=== PATIENT | male | born 1965 | race Two or more races ===

== ENCOUNTER 2017-12-12 12:28 | Outpatient (CLI) | payer OTHER | END 2017-12-12 12:33 | disposition home or self-care (01) | LOC: SONOGRAMA 12:28 | DX: M25.571 Pain in right ankle and joints of right foot (principal) ==

== ENCOUNTER → 2018-01-04 14:38 | Outpatient (CLI) | payer OTHER | END | disposition home or self-care (01) | LOC: LAB 14:38 | DX: J11.1 Influenza due to unidentified influenza virus with other respiratory manifestations (principal) ==

== ENCOUNTER 2018-03-15 14:06 | Outpatient (CLI) | payer OTHER | END 2018-03-15 14:08 | disposition home or self-care (01) | LOC: RAD 501 14:06 | DX: M25.531 Pain in right wrist (principal) ==

== ENCOUNTER 2018-05-11 12:25 | Outpatient (CLI) | payer OTHER | END 2018-05-11 17:00 | disposition home or self-care (01) | LOC: SONOGRAMA 12:25 | DX: M25.531 Pain in right wrist (principal) ==

== ENCOUNTER 2019-02-05 15:23 | Outpatient (CLI) | payer OTHER ==
[~2019-02-05] VITALS: Ht 172.7 cm; Wt 65.8 kg
== END 2019-02-05 15:40 | disposition home or self-care (01) ==
LOC: OFIC 805 15:23
DX: J38.3 Other diseases of vocal cords (principal); R22.1 Localized swelling, mass and lump, neck; M54.2 Cervicalgia; K08.89 Other specified disorders of teeth and supporting structures

== ENCOUNTER 2019-02-09 09:38 | Outpatient (CLI) | payer OTHER | END 2019-02-09 13:33 | disposition home or self-care (01) | LOC: TOM 09:38 | DX: R13.19 Other dysphagia (principal) | CPT/HCPCS: 70492; Q9965 ==

== ENCOUNTER 2019-02-14 11:10 | Outpatient (CLI) | payer OTHER | END 2019-02-14 11:30 | disposition home or self-care (01) | LOC: OFIC 805 11:10 | DX: K13.70 Unspecified lesions of oral mucosa (principal); K08.89 Other specified disorders of teeth and supporting structures; M54.2 Cervicalgia; J38.3 Other diseases of vocal cords ==

== ENCOUNTER → 2019-04-19 | Outpatient (CLI) | payer OTHER | END | disposition home or self-care (01) | LOC: RAD 14:57 | DX: M54.2 Cervicalgia (principal); M54.5 Low back pain ==

== ENCOUNTER 2019-08-17 14:52 | Outpatient (CLI) | payer OTHER | END 2019-08-17 15:55 | disposition home or self-care (01) | LOC: RAD 14:52 | DX: M54.5 Low back pain (principal) ==

== ENCOUNTER 2020-01-11 13:09 | Outpatient (CLI) | payer OTHER | END 2020-01-11 13:18 | disposition home or self-care (01) | LOC: SONOGRAMA 13:09 → MAMO-SONO 13:15 → SONOGRAMA 13:18 | DX: E04.2 Nontoxic multinodular goiter (principal); E55.9 Vitamin D deficiency, unspecified; E78.00 Pure hypercholesterolemia, unspecified; K51.419 Inflammatory polyps of colon with unspecified complications ==

== ENCOUNTER 2020-04-21 11:57 | Outpatient (CLI) | payer OTHER | END 2020-04-21 12:01 | disposition home or self-care (01) | LOC: RAD 11:57 | PROVIDERS: ATTEND Physical Medicine & Rehabilitation | DX: M54.2 Cervicalgia (principal) ==

== ENCOUNTER 2020-09-24 08:57 | Outpatient (CLI) | payer OTHER | END 2020-09-24 09:22 | disposition HB | LOC: RAD 08:57 | PROVIDERS: ATTEND Physical Medicine & Rehabilitation | DX: M65.812 Other synovitis and tenosynovitis, left shoulder (principal); M25.512 Pain in left shoulder ==

== ENCOUNTER 2021-02-06 12:35 | Outpatient (CLI) | payer OTHER | END 2021-02-06 12:46 | disposition home or self-care (01) | LOC: RAD 12:35 | PROVIDERS: ATTEND Physical Medicine & Rehabilitation | DX: M54.6 Pain in thoracic spine (principal); M54.5 Low back pain; S40.012A Contusion of left shoulder, initial encounter ==

== ENCOUNTER 2021-03-18 13:11 | Outpatient (CLI) | payer OTHER | END 2021-03-18 13:23 | disposition home or self-care (01) | LOC: SONOGRAMA 13:11 → MAMO-SONO 13:15 → SONOGRAMA 13:23 | PROVIDERS: ATTEND Physical Medicine & Rehabilitation | DX: S96.922A Laceration of unspecified muscle and tendon at ankle and foot level, left foot, initial encounter (principal) ==

== ENCOUNTER 2021-05-07 14:47 | Outpatient (CLI) | payer OTHER | END 2021-05-07 14:56 | disposition home or self-care (01) | LOC: MRI 14:47 | PROVIDERS: ATTEND Physical Medicine & Rehabilitation | DX: M25.572 Pain in left ankle and joints of left foot (principal); S96.912A Strain of unspecified muscle and tendon at ankle and foot level, left foot, initial encounter | CPT/HCPCS: 73721 ==

== ENCOUNTER 2021-07-15 09:29 | Outpatient (CLI) | payer OTHER | END 2021-07-15 09:34 | disposition home or self-care (01) | LOC: NUCLEAR 09:29 | PROVIDERS: ATTEND Physical Medicine & Rehabilitation | DX: I73.9 Peripheral vascular disease, unspecified (principal); I87.2 Venous insufficiency (chronic) (peripheral) ==

== ENCOUNTER 2021-07-16 11:15 | Outpatient (CLI) | payer OTHER | END 2021-07-16 12:00 | disposition home or self-care (01) | LOC: NUCLEAR 11:15 | PROVIDERS: ATTEND Physical Medicine & Rehabilitation | DX: I73.9 Peripheral vascular disease, unspecified (principal) ==

== ENCOUNTER 2022-03-10 12:11 | Outpatient (CLI) | payer OTHER | END 2022-03-10 12:13 | disposition home or self-care (01) | LOC: RAD 12:11 | PROVIDERS: ATTEND Physical Medicine & Rehabilitation | DX: M25.552 Pain in left hip (principal) ==

== ENCOUNTER 2022-03-16 15:06 | Outpatient (CLI) | payer OTHER | END 2022-03-16 15:07 | disposition home or self-care (01) | LOC: TOM 15:06 | PROVIDERS: ATTEND Internal Medicine | DX: G44.221 Chronic tension-type headache, intractable (principal) ==

== ENCOUNTER → 2022-03-16 | Outpatient (CLI) | payer OTHER | END | disposition home or self-care (01) | LOC: RAD 13:49 | PROVIDERS: ATTEND Internal Medicine | DX: M54.2 Cervicalgia (principal) ==

== ENCOUNTER 2022-04-09 14:28 | Outpatient (CLI) | payer OTHER | END 2022-04-09 14:32 | disposition home or self-care (01) | LOC: TOM 14:28 | PROVIDERS: ATTEND Physical Medicine & Rehabilitation | DX: M25.552 Pain in left hip (principal) ==

== ENCOUNTER 2023-05-09 14:38 | Outpatient (CLI) | payer OTHER | END 2023-05-09 14:43 | disposition home or self-care (01) | LOC: RAD 14:38 | PROVIDERS: ATTEND Physical Medicine & Rehabilitation | DX: M25.551 Pain in right hip (principal) ==

== ENCOUNTER 2024-02-02 13:52 | Outpatient (CLI) | payer OTHER | END 2024-02-02 13:57 | disposition home or self-care (01) | LOC: RAD 13:52 | PROVIDERS: ATTEND Specialist | DX: J45.20 Mild intermittent asthma, uncomplicated (principal) ==

== ENCOUNTER 2024-04-30 14:41 | Outpatient (CLI) | payer OTHER | END 2024-04-30 14:44 | disposition home or self-care (01) | LOC: RAD 14:41 | PROVIDERS: ATTEND Specialist | DX: N20.0 Calculus of kidney (principal) ==

== ENCOUNTER 2024-12-28 11:08 | Outpatient (CLI) | payer OTHER | END 2024-12-28 11:17 | disposition home or self-care (01) | LOC: SONOGRAMA 11:08 | PROVIDERS: ATTEND Physical Medicine & Rehabilitation | DX: M54.2 Cervicalgia (principal); M25.511 Pain in right shoulder ==

== ENCOUNTER 2025-04-04 13:28 | Outpatient (CLI) | payer OTHER | END 2025-04-04 13:32 | disposition home or self-care (01) | LOC: SONOGRAMA 13:28 | PROVIDERS: ATTEND Physical Medicine & Rehabilitation | DX: M25.511 Pain in right shoulder (principal) ==

== ENCOUNTER 2025-07-16 12:49 | Outpatient (CLI) | payer OTHER | END 2025-07-16 12:51 | disposition home or self-care (01) | LOC: RAD 12:49 | PROVIDERS: ATTEND Physical Medicine & Rehabilitation | DX: M25.572 Pain in left ankle and joints of left foot (principal) ==

== ENCOUNTER 2025-07-22 10:06 | Outpatient (CLI) | payer OTHER | END 2025-07-22 10:07 | disposition home or self-care (01) | LOC: NUCLEAR 10:06 | PROVIDERS: ATTEND Physical Medicine & Rehabilitation | DX: I87.2 Venous insufficiency (chronic) (peripheral) (principal) ==

== ENCOUNTER 2025-07-23 10:38 | Outpatient (CLI) | payer OTHER | END 2025-07-23 10:39 | disposition home or self-care (01) | LOC: NUCLEAR 10:38 | PROVIDERS: ATTEND Physical Medicine & Rehabilitation | DX: I77.9 Disorder of arteries and arterioles, unspecified (principal) ==